=== PATIENT | male | born 1955 | race Caucasian/White ===

== ENCOUNTER → 2019-05-23 | Day surgery (SDC) | payer MEDICARE ==
[2019-05-22 10:19] VITALS: BMI 35.4
[~2019-05-23] MED LIST: Fentanyl 100 MCG/2 ML VIAL ONE; Heparin 10,000 UNITS/1 ML VIAL ONE; Iopamidol 370 76% 100 ML VIAL ONE; Lidocaine 1% (PF) 30 ML VIAL ONE; Midazolam HCl 2 mg/2 ml Vial ONE; Nitroglycerin 100MG/250ML BOT 250 ML ONE; Verapamil 5 MG/2 ML VIAL ONE; hydrALAZINE 20 MG/ML VIAL ONE
[2019-05-23 07:15] LABS: #Basophils 0.1 thou/uL (0.0-0.2); #Eosinphils 0.2 thou/uL (0.0-0.7); #Monocytes 0.7 thou/uL (0.11-0.59); #Neutrophils 4.6 thou/uL (1.40-6.50); %Basophils 1.3 % (0.0-1.0); %Eosinophils 2.1 % (0.0-10.0); %Lymphocytes 26.5 % (21.0-51.0); %Monocytes 9.2 % (0.0-10.0); Hemoglobin 15.4 g/dL (14.0-18.0); Mean Corpuscular HGB CONC 34.8 g/dL (32.0-36.0); Mean Corpuscular Hemoglobin 32.2 pg (27.0-31.0); Mean Corpuscular Volume 92.3 fL (78.0-98.0); Mean Platelet Volume 7.3 fL (7.4-10.4); Platelet Count 321 thou/uL (130-400); RBC Distribution Width 12.8 % (11.5-14.5); Red Blood Cell (RBC) Count 4.78 mill/uL (4.70-6.10); White Blood Cell (WBC) Count 7.6 thou/uL (4.8-10.8)
[2019-05-23 07:21] LABS: PTT 27.9 SEC (22.9-36.1); Prothrombin Time 12.6 SEC (12.0-14.7)
[2019-05-23 07:46] LABS: Alkaline Phosphatase 60 U/L (40-110); Anion Gap 13 mmol/L (10-20); BUN (Urea Nitrogen) 19 mg/dL (8.4-25.7); Bilirubin, Total 0.8 mg/dL (0.2-1.2); Calc. Creatinine Clearance 103 mL/min (70-130); Calcium 9.1 mg/dL (7.8-10.44); Carbon Dioxide 23 mmol/L (23-31); Chloride 108 mmol/L (98-107); Cholesterol 234 mg/dl (< 200 Desired); Estimated GFR-MDRD 67; Globulin 2.9 g/dL (2.4-3.5); Glucose 96 mg/dL (80-115); Protein, Total 6.9 g/dL (5.8-8.1); Sodium 140 mmol/L (136-145)
[2019-05-23 07:47] LABS: ALT (SGPT) 13 U/L (8-55); AST (SGOT) 12 U/L (5-34); Triglycerides 236 mg/dL (Less than 150)
[2019-05-23 07:49] LABS: Cardiac Risk 6.5 (Less than 4.5); HDL Cholesterol 36 mg/dL (>60 Neg Risk); LDL Cholesterol, Calculated 151 mg/dL
--- NOTE | 2019-05-23 16:54 | EKG ---
Test Reason : PREOP Blood Pressure : / mmHG Vent. Rate : 069 BPM Atrial Rate : 089 BPM P-R Int : 000 ms QRS Dur : 100 ms QT Int : 408 ms P-R-T Axes : 000 023 -06 degrees QTc Int : 437 ms Atrial fibrillation Inferior infarct , age undetermined cannot be excluded Abnormal ECG Confirmed by DANNA ESTES ([id number]) on 05/23/2019 4:54:18 PM Referred By: SANTOSH Confirmed By:DANNA ESTES
== END ==
LOC: CCL 06:12
PROVIDERS: ATTEND Internal Medicine Cardiovascular Disease
PROC: 4A023N7 Measurement of Cardiac Sampling and Pressure, Left Heart, Percutaneous Approach (ICD-10-PCS; principal; 2019-05-23)
PROC: B2111ZZ Fluoroscopy of Multiple Coronary Arteries using Low Osmolar Contrast (ICD-10-PCS; 2019-05-23)
DX: I25.10 Atherosclerotic heart disease of native coronary artery without angina pectoris (principal); I10 Essential (primary) hypertension; Z79.01 Long term (current) use of anticoagulants; Z79.899 Other long term (current) drug therapy
CPT/HCPCS: 36415; 80053; 80061; 85025; 85610; 85730; 93005; 93010; 93458; 99152; 99153; C1769; J0360; J1644; J2001; J2250; J3010; Q9967